=== PATIENT | female | born 1955 | race Caucasian/White ===

== ENCOUNTER 2023-11-21 17:21 | Emergency (ER) | payer BC, SELFPAY ==
[2023-11-21 17:33] VITALS: BP 139/82
--- NOTE | 2023-11-21 19:07 | ED.GENMED ---
History of Present Illness
<Tari Bridges PA-C - Last Filed: 11/22/23 00:44>
General
Chief Complaint: DVT/Possible Blood Clot
Source: patient
Exam Limitations: none
Time Seen by Provider: 11/21/23 18:12
Nursing documentation reviewed up to this point in time: agreed with
Travel History
Have you had any contact with someone who has COVID-19?: No
Do you have any symptoms of coronavirus? Fever > 100 degrees, chills, cough, shortness of breath, sore throat, loss of taste or smell, muscle aches, or headache?: No
History of Present Illness
History of Present Illness:
Patient is a 68-year-old female postop day 9 from left total knee replacement presenting for evaluation of acute onset left lower leg pain. Patient endorses noticing pain earlier today in her left mid calf when dorsiflexing her left ankle. She
denies any pain in her knee. She denies any associated fever, chills, chest pain, shortness of breath. Surgery was uncomplicated and patient has been managing pain well at home. She reports recovering going generally well since surgery, able to
get up and walk around throughout the day. she has been taking a baby aspirin twice a day since her surgery prophylactically. Patient did call and speak with [facility] who performed the surgery and instructed patient to come to the emergency
department to rule out a DVT.
She does report coming down with a cold and associated diarrhea few days ago. She is concerned that with the frequent diarrhea she is not absorbing the baby aspirin.
Past History
<Tari Bridges PA-C - Last Filed: 11/22/23 00:44>
Past History
ED Past Medical History: None
ED Past Surgical History: None
Social History
Tobacco: Non-smoker
Alcohol: Occasional
Drug: None
Personal:
Living: with family
Employment: Employed
Family History
Family History: Other (Noncontributory)
Phy Exam
<Tari Bridges PA-C - Last Filed: 11/22/23 00:44>
Physical Exam
Physical Exam:
General: Well appearing and non-toxic
Vitals: Vital signs stable, afebrile
HEENT: Atraumatic, normocephalic protecting airway
Neck: appears supple, trachea midline
CV: Regular rate and rhythm, heart sounds normal, no evidence of cyanosis
Resp: No evidence of respiratory distress, lungs clear
Abd: Non-distended
Extremities: Significant edema of the left lower extremity with mild tenderness to palpation of left calf worse dorsiflexion of left ankle, erythema, edema, warmth of left calf inferior to knee, ecchymoses of calf below knee consistent with surgery,
well-healing vertical incision of left knee without any signs of cellulitis or infection; DP, PT, popliteal pulse palpable, left lower extremity neurovascularly intact
Psych: Normal affect
Skin: Healing incision of left knee with surrounding erythema, warmth, swelling, as above
Course
<Tari Bridges PA-C - Last Filed: 11/22/23 00:44>
Orders/Labs/Results
Orders:
Orders
11/21/23 17:30
Venous Doppler Lwr Ext Left [US Periph Venous LOWER Ext LT] Urgent
Comment:
Reason For Exam: left calf pain
Vital Signs
Initial and Last Documented VS:
Initial Vital Signs
Temp Pulse Resp BP Pulse Ox
97.9 F 109 17 139/82 99
11/21/23 17:33 11/21/23 17:33 11/21/23 17:33 11/21/23 17:33 11/21/23 17:33
Last Documented Vital Signs
Temp Pulse Resp BP Pulse Ox
97.9 F 109 17 139/82 99
11/21/23 17:33 11/21/23 17:33 11/21/23 17:33 11/21/23 17:33 11/21/23 17:33
<Heriberto Mayo DO - Last Filed: 11/21/23 19:57>
Orders/Labs/Results
Orders:
Orders
11/21/23 17:30
Venous Doppler Lwr Ext Left [US Periph Venous LOWER Ext LT] Urgent
Comment:
Reason For Exam: left calf pain
Vital Signs
Initial and Last Documented VS:
Initial Vital Signs
Temp Pulse Resp BP Pulse Ox
97.9 F 109 17 139/82 99
11/21/23 17:33 11/21/23 17:33 11/21/23 17:33 11/21/23 17:33 11/21/23 17:33
Last Documented Vital Signs
Temp Pulse Resp BP Pulse Ox
97.9 F 109 17 139/82 99
11/21/23 17:33 11/21/23 17:33 11/21/23 17:33 11/21/23 17:33 11/21/23 17:33
<Tari Bridges PA-C - Last Filed: 11/22/23 00:44>
MDM/Problems Addressed
Differential Diagnosis Includes:
Not limited to: Normal postoperative swelling/pain, DVT, cellulitis, muscle spasm/strain
MDM/Problems Addressed:
Patient is a 68-year-old female postop day 9 from left total knee replacement presenting with somewhat acute onset left calf pain started today and concern for possible DVT. No associated chest pain or shortness of breath patient has been taking
baby aspirin twice per day prophylactically following surgery. Patient's vital signs are stable. Exam as above. Vertical incision from left total knee replacement appears to be well-healing without any immediate signs of infection. There is
significant erythema, warmth of left lower leg inferior to knee and some tenderness of left calf made worse with dorsiflexion left ankle. Will check ultrasound.
Ultrasound shows no evidence of DVT. Given that symptoms started today�discussed with patient that with persisting/worsening symptoms ultrasound should be repeated to ensure no DVT. Given degree of warmth, redness advised patient to follow-up with
orthopedic surgeon tomorrow morning for visit to ensure no signs of infection. Will not start antibiotic at this time and defer to orthopedic for evaluation. No one is on-call at [facility]. Patient is comfortable this plan. All questions
answered.
Chronic conditions affecting care:
Recent left total knee replacement
Acute Exacerbation and/or Progression of Chronic Illness:
N/A
<Tari Bridges PA-C - Last Filed: 11/22/23 00:44>
*Radiology
Radiology exam reviewed: radiology read reviewed
*Pulse Oximetry
Patient hypoxic: no
*EKG
Interpreted by ED Provider?: NA
*Corporate Giving Manager Interpretation
Rate: Corporate Giving Manager- N/A
*Critical Care Note
Total Time (30-74mins, 75-104mins- exclusive of procedures): Not Applicable
Data Reviewed
Prescriptions/Medications Considered But Not Given:
Consider starting antibiotics but will have patient follow-up with orthopedics tomorrow for prompt evaluation to ensure no infection
ED Attending Note
<Tari Bridges PA-C - Last Filed: 11/22/23 00:44>
-
Portions of this chart may have been created with voice recognition software.� Occasional wrong word or��sound alike� substitutions may have occurred due to the inherent limitations of voice recognition software.
<Heriberto Mayo DO - Last Filed: 11/21/23 19:57>
ED Attending Note
Patient seen and examined by attending physician: Yes
I performed the substantive portion of visit, reviewed & personally made and approve the management plan that is documented in note by myself or YORDY.: Yes
I performed a history and physical exam of patient and discussed management with resident, I reviewed resident's note and agree with documented findings and plan of care.: Yes
ED Attending Note:
I evaluated the patient at bedside. The patient does have ecchymosis which is older appearing to the left knee consistent with relatively recent surgery. This is rather warm to touch however the patient states there is no increasing pain at the
knee. Ultrasound for DVT negative. I encouraged repeat ultrasound imaging if symptoms persist/worsen. I also strongly recommend that she follows up with orthopedics by calling them tomorrow. There is currently nobody on-call for [facility].
Discharge Plan
Departure
Patient Disposition: Home (Routine Discharge)
Date of Disposition: 11/21/23
Time of Disposition: 19:25
Patient with high blood pressure during this ER visit?: No
Condition: Good
Covid-19: Not Applicable
Discharge Problem:
Pain and swelling of left lower leg
Instructions: Deep Vein Thrombosis (Blood Clots in the Legs) (DC)
Referrals:
Chela Ralph CRNP [Family Provider] -
Activity Restrictions/Additional Instructions:
- Return to the emergency department with any high fevers, significant swelling in left lower extremity, worsening in redness/warmth/pain of left lower extremity, any pus draining from wound, numbness/tingling in left lower extremity, any signs of
infection, worsening in current symptoms, or any other concerns
-As discussed�the ultrasound performed today was negative at this time for any evidence of a DVT. If symptoms persist/worsen you should have this ultrasound repeated to ensure no DVT has formed.
-Given the significant redness/warmth of your left lower leg�you should contact [facility] orthopedics tomorrow to schedule an immediate follow-up for evaluation/further management to ensure there is no infection present.
-Continue to take medications as prescribed. You should elevate your leg as often as possible
Interventions
Interventions:
*Risk Screen - Suicide Last Done: 11/21/23 17:33
*General Assessment Last Done: 11/21/23 17:33
*Neglect/Abuse Screening Last Done: 11/21/23 17:33
*ED COVID-19 Vaccine History Last Done: 11/21/23 17:33
*Nursing Disposition Last Done: 11/21/23 19:52
ED- Cardiac Assessment Last Done: 11/21/23 18:41
ED- Pulmonary Assessment Last Done: 11/21/23 18:41
ED-Peripheral Vascular Assessment Last Done: 11/21/23 18:41
ED-Skin Assessment Last Done: 11/21/23 18:41
Discharge Date and Time
Discharge Date/Time: 11/21/23 19:53
Print Language: BENGALI
== END 2023-11-21 19:53 | disposition home or self-care (01) ==
LOC: EMR 17:21
PROVIDERS: EMERGENCY PHYSICIAN Emergency Medicine; FAMILY PHYSICIAN Nurse Practitioner Adult Health
DX: M79.662 Pain in left lower leg (principal); M79.89 Other specified soft tissue disorders; Z96.652 Presence of left artificial knee joint
CPT/HCPCS: 99284; 93971

== ENCOUNTER → 2023-11-27 16:30 | Outpatient (REF) | payer BC, SELFPAY | LOC: HWRAD 16:30 | PROVIDERS: ATTENDING PHYSICIAN Nurse Practitioner Adult Health | DX: R06.02 Shortness of breath (principal) | CPT/HCPCS: 71046 ==

== ENCOUNTER → 2024-01-06 13:54 | Outpatient (REF) | payer BC, SELFPAY | LOC: HWRAD 13:54 | PROVIDERS: ATTENDING PHYSICIAN Nurse Practitioner Adult Health | DX: J18.9 Pneumonia, unspecified organism (principal) | CPT/HCPCS: 71046 ==

== ENCOUNTER → 2024-05-19 08:10 | Outpatient (REF) | payer BC, SELFPAY | LOC: HWRAD 08:10 | PROVIDERS: ATTENDING PHYSICIAN Nurse Practitioner Adult Health | DX: Z78.0 Asymptomatic menopausal state (principal) | CPT/HCPCS: 77080 ==